=== PATIENT | female | born 1940 | race Caucasian/White ===

== ENCOUNTER 2016-12-14 10:03 | Inpatient (IN) ==
--- NOTE | 2016-12-14 10:18 | Emergency Department Note ---
Disposition Clinical Impression: Atrial fibrillation with slow ventricular response, Hyperprothrombinemia Anemia Qualifiers: Anemia type: unspecified type Qualified Code(s): D64.9 - Anemia, unspecified Disposition: Admitted As Inpatient Referrals: Jose Bonilla DO [Primary Care Provider] - Forms: ED Satisfaction Letter Time of Disposition: 13:06 General Adult HPI - General Chief complaint: ED Shortness of Breath/Dyspnea Stated complaint: swelling from waist down, shortness of breath Time Seen by Provider: 12/14/16 10:15 Source: patient Mode of arrival: ambulatory Limitations: no limitations Nursing Notes Reviewed: Yes Vital Signs Reviewed: Yes - History of Present Illness HPI Narrative: 76-year-old female states she woke up this morning with swelling in both of her legs up to her waist. She is noticed some red spots on her arms and legs since yesterday. She is on Coumadin. She does not remember when her INR was last checked. She has a history of atrial fibrillation. She denies chest pain. She denies shortness of breath. She is a smoker with COPD. She has a history of congestive heart failure. She does admit to some left calf pain. No chest pain. Onset (ago): day(s) (1) Location: lower extremity Pain Severity: moderate Quality: sharp (Left leg) Consistency: constant Improves with: nothing Worsens with: nothing Associated symptoms: Reports: denies other symptoms Treatments Prior to Arrival: none - Related Data Home Medications Medication Instructions Recorded Confirmed Albuterol Sulfate [Albuterol 1 puff IH Q4HR 02/20/15 07/28/15 Inhaler] Aspirin Enteric Coated [Aspirin EC] 81 mg PO DAILY 02/20/15 07/28/15 Digoxin [Lanoxin] 0.125 mg PO DAILY 02/20/15 07/28/15 Fluticasone Propionate [Flovent 110 gm IH BID 02/20/15 07/28/15 Hfa] Lisinopril/Hydrochlorothiazide 1 tab PO QAM 02/20/15 07/28/15 [Lisinopril-Hctz 20-12.5 mg Tab] Metoprolol [Lopressor] 25 mg PO BID 02/20/15 07/28/15 Diclofenac Sodium [Voltaren] 100 gm TP DAILY 12/14/16 12/14/16 Ergocalciferol (VITAMIN D2) 50,000 unit PO 12/14/16 [Vitamin D2] Ferrous Sulfate [Iron] 325 mg PO BID 12/14/16 12/14/16 HYDROcodone/Acet 5/325 mg [[place] 1 tab PO Q6H PRN 12/14/16 12/14/16 5-325 mg] Ipratropium/Albuterol Neb [Duoneb] 3 ml IH Q6HR 12/14/16 12/14/16 Loratadine [Allergy Relief] 10 mg PO DAILY 12/14/16 12/14/16 Potassium Chloride [Klor-Con 10] 10 meq PO DAILY 12/14/16 12/14/16 Warfarin [Coumadin] 5 mg PO 1800 12/14/16 12/14/16 amLODIPine [Norvasc] 5 mg PO DAILY 12/14/16 12/14/16 Previous Rx's Medication Instructions Recorded Fluticasone/Salmeterol [Advair 1 each IH BID #1 blst.w.dev 06/13/15 250-50 Diskus] Allergies Allergy/AdvReac Type Severity Reaction Status Date / Time Sulfa (Sulfonamide Allergy Severe Hives Verified 07/30/15 13:01 Antibiotics) ciprofloxacin [From Cipro] Allergy Rash Verified 12/14/16 10:04 All systems ED: reviewed and negative except as stated. Constitutional: Denies: fever, chills ENT ED: Denies: ear pain, throat pain Cardiovascular: Denies: chest pain Respiratory: Denies: cough, dyspnea Gastrointestinal: Denies: abdominal pain, nausea, vomiting, diarrhea Genitourinary: Denies: urgency, dysuria Musculoskeletal: Reports: other (Bilateral lower extremity swelling. Left calf pain.). Denies: back pain Integumentary: Reports: other ("Spots" on her arms and legs.) Neurological: Reports: weakness. Denies: numbness, paresthesias Past Medical History - Past Medical History Medical history: Reports: arthritis, atrial fibrillation, CHF, COPD, hyperlipidemia, hypertension, osteoporosis Surgical history: Reports: no surgical history, other Psychiatric history: Reports: no psych history LEAD SOFTWARE ARCHITECT history: Reports: no LEAD SOFTWARE ARCHITECT history - Social History Smoking Status: Former smoker Smokeless Tobacco Status: No Alcohol use: Reports: none Drug use: Reports: none Physical Exam - General Limitations: no limitations General appearance: alert, in no apparent distress - Head Head exam: atraumatic, normocephalic - Eye Eye exam: Present: PERRL, EOMI, other (Conjunctiva are pale). Absent: scleral icterus, conjunctival injection - ENT ENT exam: mucous membranes moist, other (Mucous membranes are pale) - Neck Neck exam: Present: normal inspection, full ROM, trachea midline. Absent: tenderness, lymphadenopathy - Respiratory Respiratory exam: Present: wheezes (Rare bilateral expiratory). Absent: respiratory distress, accessory muscle use - Cardiovascular Cardiovascular exam: Present: bradycardia, irregular rhythm. Absent: systolic murmur, diastolic murmur, gallop - Abdominal Exam Abdominal exam: Present: soft, Non-Tender - Extremities Exam Extremities exam: Present: other (2+ pitting edema starting below the knees. Diffuse left calf tenderness. No palpable cord. Mild edema of the thighs. I cannot palpate pulses in the lower extremities. The lower extremities are warm to touch. Intact capillary refill.) - Neurological Exam Neurological exam: Present: alert, oriented X3. Absent: motor sensory deficit - Psychiatric Psychiatric exam: Present: normal affect, normal mood - Skin Skin exam: Present: warm, dry, pallor, other (Scattered small purpuric areas on her arms and legs.) Course - Reevaluation(s) Reevaluation #1: Discussed treatment plan with patient. She is agreeable with being admitted. I spoke with Dr. Carrasco. He has accepted the patient for admission here. Time: 13:02 Vital Signs Temperature 97.6 F 12/14/16 10:06 Pulse Rate 39 12/14/16 10:06 Respiratory Rate 20 12/14/16 10:06 Blood Pressure 111/46 12/14/16 10:06 O2 Sat by Pulse Oximetry 98 12/14/16 10:06 Temperature 97.6 F 12/14/16 11:33 Pulse Rate 40 12/14/16 12:45 Respiratory Rate 18 12/14/16 12:45 Blood Pressure 154/43 12/14/16 12:45 O2 Sat by Pulse Oximetry 99 12/14/16 12:45 Oxygen Delivery Oxygen Delivery Nasal Cannula Procedures - Central Line Placement Right Femoral Central Line Inserted*: Yes Central Line Insertion: emergent Consent Obtained: verbal consent, written consent Procedural Pause: verify patient name and date of , timeout performed per policy, assemble equipment and verify supplies, perform hand hygiene Patient Placed on Monitor/Pulse Ox: Yes During the Procedure: clinician is wearing sterile gloves, cap, mask,& gown during insertion, sterile field and sterile technique are maintained Central Line Prep: Chlorhexidine scrub Prep the Procedure Site: apply chloraprep to the skin using a back and forth scrubbing motion, apply chloraprep for 30 seconds (upper body), 1-2 min ( femoral sites), allow prep to dry, drape the patient with a full body drape Local Anesthetic: lidocaine 1% Amount of anesthesia used (mL): 5 Ultrasound Used for Placement: No Central Line Lumen Inserted: triple Post Procedure: sutured in place, good blood return, all ports aspirated, flushed, capped, sterile dressing applied, guide wire removed and visualized Patient Tolerated Procedure: well, no complications Complications: none Name of Clinician Inserting Central Line: Dwight Cochran MD Date: 12/14/16 Medical Decision Making - [facility] Narrative Medical decision making narrative: Differential includes but is not limited to congestive heart failure, dependent edema, DVT, severe anemia, atrial fibrillation with slow ventricular rate. The patient is anemic. Her stool is Hemoccult negative. There is no source of active bleeding. Her INR significantly elevated. 2 units of packed red blood cells of been ordered. Since there is no active bleeding I have not reversed her INR. She has poor IV access will require a central line. I will use a right femoral site which is compressible because of her significantly elevated INR. She has a slow A. fib in the 30s. She is on metoprolol and digoxin which will be held. Her blood pressure has remained stable. Dr. Carrasco is agreeable with this treatment plan of transfusion 2 units, holding digoxin and metoprolol. He is agreeable with holding her Coumadin, no vitamin K or fresh frozen plasma at this time. - Lab Data Lab results reviewed: Yes I reviewed the patient's lab results. Result diagrams: 12/14/16 10:47 12/14/16 10:47 Lab Results 12/14/16 12/14/16 12/14/16 Range/Units 10:47 10:47 10:47 WBC 8.3 (4.3-11.1) K/mcL RBC 1.97 L (3.82-4.97) M/mcL Hgb 5.7 L* (11.5-15.4) g/dL Hct 20.6 L (35.3-44.9) % MCV 104.6 H (83.0-100.0) fL MCH 28.9 (28.0-33.3) pg MCHC 27.7 L (31.6-35.5) g/dL RDW 19.2 H (11.5-14.5) % Plt Count 218 (140-400) K/mcL MPV 11.5 (9.4-12.4) fL Immature Gran % 0.4 (0-4) % Seg Neutrophils % 82.6 % Lymphocytes % 7.9 % Monocytes % 7.4 % Eosinophils % 1.1 % Basophils % 0.6 % Neutrophils # 6.8 (1.6-8.9) K/mcL Lymphocytes # 0.7 (0.6-4.6) K/mcL Monocytes # 0.6 (0.0-1.3) K/mcL Eosinophils # 0.1 (0.0-0.6) K/mcL Basophils # 0.1 (0.0-0.2) K/mcL Nucleated RBCs/100 WBC 0.6 H (0) /100 WBC Hypochromasia Present A (Not Present) Anisocytosis 2+ A (Not Present) PT 107.4 H* (9.4-12.1) Seconds INR 9.3 H* Sodium 137 (136-145) mEq/L Potassium 5.2 H (3.5-4.5) mEq/L Chloride 108 (98-109) mEq/L Carbon Dioxide 15 L (19-29) mEq/L BUN 35 H (7-20) mg/dL Creatinine 1.33 H (0.57-1.11) mg/dL Est GFR ( Amer) 47 L (> 60) Est GFR (Non-Af Amer) 39 L (> 60) BUN/Creatinine Ratio 26 (6-26) Glucose 125 H (70-99) mg/dL Calculated Osmolality 293 (280-300) Calcium 8.8 (8.6-10.8) mg/dL Total Bilirubin 0.5 (0.2-1.2) mg/dL AST 15 (5-34) Units/L ALT 14 (0-55) Units/L Alkaline Phosphatase 70 (38-126) Units/L Troponin I (0-0.03) ng/mL B-Natriuretic Peptide (0-100) pg/mL Serum Total Protein 5.7 L (6.0-8.3) g/dL Albumin 2.7 L (3.5-5.0) g/dL Globulin 3.0 (2.4-3.5) g/dL Albumin/Globulin Ratio 0.9 L (1.1-2.2) Stool Occult Blood (Negative) Digoxin 1.2 (0.8-2.0) ng/mL Blood Type Antibody Screen Crossmatch 12/14/16 12/14/16 12/14/16 Range/Units 10:47 10:47 11:36 WBC (4.3-11.1) K/mcL RBC (3.82-4.97) M/mcL Hgb (11.5-15.4) g/dL Hct (35.3-44.9) % MCV (83.0-100.0) fL MCH (28.0-33.3) pg MCHC (31.6-35.5) g/dL RDW (11.5-14.5) % Plt Count (140-400) K/mcL MPV (9.4-12.4) fL Immature Gran % (0-4) % Seg Neutrophils % % Lymphocytes % % Monocytes % % Eosinophils % % Basophils % % Neutrophils # (1.6-8.9) K/mcL Lymphocytes # (0.6-4.6) K/mcL Monocytes # (0.0-1.3) K/mcL Eosinophils # (0.0-0.6) K/mcL Basophils # (0.0-0.2) K/mcL Nucleated RBCs/100 WBC (0) /100 WBC Hypochromasia (Not Present) Anisocytosis (Not Present) PT (9.4-12.1) Seconds INR Sodium (136-145) mEq/L Potassium (3.5-4.5) mEq/L Chloride (98-109) mEq/L Carbon Dioxide (19-29) mEq/L BUN (7-20) mg/dL Creatinine (0.57-1.11) mg/dL Est GFR ( Amer) (> 60) Est GFR (Non-Af Amer) (> 60) BUN/Creatinine Ratio (6-26) Glucose (70-99) mg/dL Calculated Osmolality (280-300) Calcium (8.6-10.8) mg/dL Total Bilirubin (0.2-1.2) mg/dL AST (5-34) Units/L ALT (0-55) Units/L Alkaline Phosphatase (38-126) Units/L Troponin I 0.06 H* (0-0.03) ng/mL B-Natriuretic Peptide 1588 H (0-100) pg/mL Serum Total Protein (6.0-8.3) g/dL Albumin (3.5-5.0) g/dL Globulin (2.4-3.5) g/dL Albumin/Globulin Ratio (1.1-2.2) Stool Occult Blood (Negative) Digoxin (0.8-2.0) ng/mL Blood Type O POSITIVE Antibody Screen NEGATIVE Crossmatch See Detail 12/14/16 Range/Units 11:45 WBC (4.3-11.1) K/mcL RBC (3.82-4.97) M/mcL Hgb (11.5-15.4) g/dL Hct (35.3-44.9) % MCV (83.0-100.0) fL MCH (28.0-33.3) pg MCHC (31.6-35.5) g/dL RDW (11.5-14.5) % Plt Count (140-400) K/mcL MPV (9.4-12.4) fL Immature Gran % (0-4) % Seg Neutrophils % % Lymphocytes % % Monocytes % % Eosinophils % % Basophils % % Neutrophils # (1.6-8.9) K/mcL Lymphocytes # (0.6-4.6) K/mcL Monocytes # (0.0-1.3) K/mcL Eosinophils # (0.0-0.6) K/mcL Basophils # (0.0-0.2) K/mcL Nucleated RBCs/100 WBC (0) /100 WBC Hypochromasia (Not Present) Anisocytosis (Not Present) PT (9.4-12.1) Seconds INR Sodium (136-145) mEq/L Potassium (3.5-4.5) mEq/L Chloride (98-109) mEq/L Carbon Dioxide (19-29) mEq/L BUN (7-20) mg/dL Creatinine (0.57-1.11) mg/dL Est GFR ( Amer) (> 60) Est GFR (Non-Af Amer) (> 60) BUN/Creatinine Ratio (6-26) Glucose (70-99) mg/dL Calculated Osmolality (280-300) Calcium (8.6-10.8) mg/dL Total Bilirubin (0.2-1.2) mg/dL AST (5-34) Units/L ALT (0-55) Units/L Alkaline Phosphatase (38-126) Units/L Troponin I (0-0.03) ng/mL B-Natriuretic Peptide (0-100) pg/mL Serum Total Protein (6.0-8.3) g/dL Albumin (3.5-5.0) g/dL Globulin (2.4-3.5) g/dL Albumin/Globulin Ratio (1.1-2.2) Stool Occult Blood Negative (Negative) Digoxin (0.8-2.0) ng/mL Blood Type Antibody Screen Crossmatch - Radiology Data Radiology results reviewed: Yes I reviewed the patient's radiology results. ITS Impressions Chest X-Ray 12/14/16 10:14 IMPRESSION: Mild pulmonary vascular congestion and small to moderate left-sided pleural effusion probable underlying atelectasis or infiltrate. Follow-up to resolution is recommended. D/ / Brii Castillo MD / Brii Castillo MD Interpreting Provider: Brii Castillo MD - EKG Data EKG #1 EKG attestation: Yes I reviewed and interpreted this EKG. EKG results narrative: Atrial fibrillation with slow ventricular response, rate of 38. Age indeterminate inferior myocardial infarction. Lateral ischemic changes, slightly more pronounced than on 02/20/15. Her atrial fibrillation is chronic, her rate is significantly slower than her previous tracing with a rate of 70.
[2016-12-14 10:59] LABS: Basophils # 0.1 K/mcL (0.0-0.2); Basophils % 0.6 %; Eosinophils # 0.1 K/mcL (0.0-0.6); Eosinophils % 1.1 %; Hematocrit 20.6 % (35.3-44.9); Immature Granulocytes % 0.4 % (0-4); Lymphocytes # 0.7 K/mcL (0.6-4.6); Lymphocytes % 7.9 %; Mean Corpuscular HGB Conc 27.7 g/dL (31.6-35.5); Mean Corpuscular Hemoglobin 28.9 pg (28.0-33.3); Mean Corpuscular Volume 104.6 fL (83.0-100.0); Mean Platelet Volume 11.5 fL (9.4-12.4); Monocytes # 0.6 K/mcL (0.0-1.3); Monocytes % 7.4 %; Neutrophils # 6.8 K/mcL (1.6-8.9); Nucleated Red Blood Cells 0.6 /100 WBC (0); Platelet Count 218 K/mcL (140-400); Red Blood Count 1.97 M/mcL (3.82-4.97); Red Cell Distribution Width 19.2 % (11.5-14.5); Segmented Neutrophils % 82.6 %
[2016-12-14 11:06] LABS: Hemoglobin 5.7 g/dL (11.5-15.4)
[2016-12-14 11:12] LABS: Albumin 2.7 g/dL (3.5-5.0); Albumin/Globulin Ratio 0.9 (1.1-2.2); Bilirubin,Total 0.5 mg/dL (0.2-1.2); Calcium 8.8 mg/dL (8.6-10.8); Potassium 5.2 mEq/L (3.5-4.5); Total Protein 5.7 g/dL (6.0-8.3)
[2016-12-14 11:17] LABS: Prothrombin Time 107.4 Seconds (9.4-12.1)
[2016-12-14 11:18] LABS: Digoxin 1.2 ng/mL (0.8-2.0); INR 9.3
[2016-12-14 11:25] LABS: Anisocytosis 2+ (Not Present); Hypochromasia Present (Not Present)
[2016-12-14 13:10] LABS: Immature Reticulocyte % 32.6 % (11.0-38.0); Retculocyte # 0.32 M/mcL (0.05-0.10); Reticulocyte % 14.4 % (1.6-2.8)
[2016-12-14] MEDS ORDERED: 0.9 % Sodium Chloride 500 ML ONE (13:33)
[2016-12-14] MEDS ORDERED: Ondansetron ODT 4 MG TAB.RAPDIS SL PRN (15:39)
[2016-12-14] MEDS ORDERED: 0.9 % Sodium Chloride 1,000 ML IVC SCH (15:39)
[2016-12-14] MEDS ORDERED: Naloxone 0.4 MG/ML INJ IVP PRN (15:39)
[2016-12-14] MEDS ORDERED: *HR* HYDROcodone/Acet 5/325 mg TABLET PO PRN (15:39)
[2016-12-14] MEDS ORDERED: Ipratropium/Albuterol Neb 3 ML IH SCH (16:00)
--- NOTE | 2016-12-14 16:14 | Electrocardiograph Report ---
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
--- NOTE | 2016-12-14 17:23 | Internal Med History&Physical ---
Date of Encounter: 12/14/16 Time of Encounter: 16:30 Assessment and Plan (1) Anemia Current visit: Yes Status: Acute Anemia testing was ordered in emergency room. Stool was reportedly guaiac negative. She has been ordered 2 units packed red blood cells. Qualifiers: Anemia type: unspecified type Qualified Code(s): D64.9 - Anemia, unspecified (2) Elevated brain natriuretic peptide (BNP) level Current visit: Yes Status: Acute Echocardiogram done 02/20/2015 showed LVEF of 65-70%. Suspect diastolic dysfunction. Will gently diurese and adjust other medications and monitor BNP peptide. (3) Chronic atrial fibrillation Current visit: No Status: Chronic Will hold Lanoxin and metoprolol since she has SVR. Will hold Coumadin since INR is elevated. (4) Hypertension Current visit: No Status: Chronic We will hold Norvasc because of edema and lisinopril/HCTZ because of azotemia. Qualifiers: Hypertension type: essential hypertension Qualified Code(s): I10 - Essential (primary) hypertension (5) Neutrophilia Current visit: Yes Status: Acute Will order CT of chest to further evaluate for pneumonia etc. We will also order UA. Internal Medicine - H&P: HPI Chief complaint: Edema, anemia Admitted From: Home Plans for Post Hospital Care: Home History of present illness: Ms. Paris is a 76 year old female who came to the emergency room stating when she awakened this morning she had noticeable edema of her legs. She denies pain in her legs or chest. She denies dyspnea. She denies the edema being present yesterday. She was evaluated in emergency room and found to have significant anemia with hemoglobin 5.7. Her INR was elevated at 9.3 and she had azotemia present. She was admitted to [facility] for ongoing care needs. Her cardiovascular history is significant for hypertension. She does not check her blood pressure at home and does not recall readings when she goes to the physician's office. She has chronic atrial fibrillation. She claims a diagnosis of heart failure. An echocardiogram done 02/20/2015 showed LVEF of 65-70%. There was indeterminant diastolic function assessment due to atrial fibrillation. There was mild to moderate MR, mild TR, and mild pulmonary hypertension with estimated RVSP of 41 mmHg. Interventricular septum and posterior wall thickness measurements were normal at 0.8 and 1.0 cm each. She denies HI, DVT or pulmonary embolus. She claims she had a heart cath approximately 10-15 years ago which was unremarkable. Past Med Surg Social Fam HX - Past Medical History Medical history: arthritis, atrial fibrillation, CHF, COPD, hyperlipidemia, hypertension, osteoporosis Psychiatric history: no psych history - Past Surgical History Surgical History: other - Social History Smoking Status: Former smoker Smokeless Tobacco Status: No Alcohol use: none Drug use: none - Family History Mother Hx Family Cardiac Disorders: Yes Hx Family Endocrine Disorder: Yes Internal Medicine - H&P: Meds Albuterol Sulfate [Albuterol Inhaler] 1 puff IH Q4HR 02/20/15 [History] Aspirin Enteric Coated [Aspirin EC] 81 mg PO DAILY 02/20/15 [History] Digoxin [Lanoxin] 0.125 mg PO DAILY 02/20/15 [History] Fluticasone Propionate [Flovent Hfa] 110 gm IH BID 02/20/15 [History] Lisinopril/Hydrochlorothiazide [Lisinopril-Hctz 20-12.5 mg Tab] 1 tab PO QAM 06/25 [History] Metoprolol [Lopressor] 25 mg PO BID 02/20/15 [History] Fluticasone/Salmeterol [Advair 250-50 Diskus] 1 each IH BID #1 blst.w.dev [Rx] Diclofenac Sodium [Voltaren] 100 gm TP DAILY 12/14/16 [History] Ergocalciferol (VITAMIN D2) [Vitamin D2] 2,000 unit PO 12/14/16 [History] Ferrous Sulfate [Iron] 325 mg PO BID 12/14/16 [History] HYDROcodone/Acet 5/325 mg [[place] 5-325 mg] 1 tab PO Q6H PRN 12/14/16 [History] Ipratropium/Albuterol Neb [Duoneb] 3 ml IH Q6HR 12/14/16 [History] Loratadine [Allergy Relief] 10 mg PO DAILY 12/14/16 [History] Potassium Chloride [Klor-Con 10] 10 meq PO DAILY 12/14/16 [History] Warfarin [Coumadin] 5 mg PO 1800 12/14/16 [History] amLODIPine [Norvasc] 5 mg PO DAILY 12/14/16 [History] Allergies Sulfa (Sulfonamide Antibiotics) Allergy (Severe, Verified 07/30/15 13:01) Hives ciprofloxacin [From Cipro] Allergy (Verified 12/14/16 10:04) Rash All Systems PM: A 10-system review of systems was performed and is negative for pertinent findings except as documented above in the HPI. Review of systems: Gen.: She states her weight has been stable the past few months Cardiovascular: As per history of present illness Respiratory: She smoked from age [age] never up to 1 pack per day. She claims a diagnosis of COPD but has not had PFTs. She does not use home oxygen. She denies evaluation for sleep apnea GI: She denies disorders of her liver gallbladder or exocrine pancreas : She denies hematuria dysuria or kidney stones. Review of available records show evidence of impaired renal function since February 2015. Neurologic: She denies large distribution strokes or seizures Endocrine: She denies diabetes thyroid disease or hyperlipidemia Hematology/oncology: She denies blood disorders or internal malignancies. She has been told she was iron deficient and was placed on oral iron therapy over a year ago. Her most recent hemoglobin prior to ER visit today was 10.0 on 2014. Psychiatric: She denies anxiety depression or other mental health issues Musk skeletal: She has DJD and was told she had vitamin D deficiency. - Constitutional Vitals: Temp Pulse Resp BP Pulse Ox 97.7 F 40 18 160/65 100 12/14/16 16:45 12/14/16 16:45 12/14/16 16:45 12/14/16 16:45 12/14/16 16:45 Exam: Gen.: She is a well-developed well-nourished female who appears in no severe distress at present time HEENT: Head is atraumatic and normocephalic. Eyes: EOMI. There is no scleral icterus. Mouth: Mucosa is moist. Neck: Supple and nontender. There is no thyromegaly or adenopathy noted. Heart: Bradycardic. I cannot tell if it is irregular. No murmurs or gallops are heard. Lungs: No wheezes or crackles are heard. Abdomen: Soft and nontender. No masses or guarding noted. Extremities: There is no cyanosis. She has 2+ edema of the legs involving both anterior and posterior/dependent portions of her legs. She has presacral edema. There is no cyanosis or clubbing noted. She has minimal DJD changes of her hands. Neurologic: Mental status: She is talkative and a good historian. Cranial nerves: Smile is symmetric. Forehead wrinkles bilaterally. Tongue protrudes midline. EOMI. Motor: There is no pronator drift. Cerebellar: Finger to nose is intact bilaterally. Skin: Warm and dry Internal Med - H&P Results - Labs CBC & Chem 7: 12/14/16 10:47 12/14/16 10:47 - VTE Reasons for not Prescribing Prophylaxis: Not indicated-Anticoagulated or INR therapeutic
[2016-12-14] MEDS ORDERED: D5% in Water 1,000 ML IVC SCH (17:45)
[2016-12-14] MEDS: Furosemide 40 MG/4 ML VIAL IVP SCH ×2 (18:25→21:18)
[2016-12-14] MEDS: Isosorbide MONOnitrate (24 HR) 30 MG TAB.ER.24H PO SCH (18:33)
[2016-12-14 18:43] LABS: % Iron Saturation 34 % (15-50); Iron 120 mcg/dL (50-170); Transferrin 254 mg/dL (180-382)
[2016-12-14 18:54] LABS: Ferritin 194 ng/ml (5-204)
[2016-12-14 19:11] LABS: Folate 9.5 ng/mL (7.0-31.4)
[2016-12-15 03:49] LABS: Bilirubin,Urine Negative (Negative); Blood,Urine Small (Negative); Clarity,Urine Slightly Cloudy (Clear); Glucose,Urine (UA) Normal (Normal); Ketones,Urine Negative (Negative); Leukocyte Esterase,Urine Negative (Negative); Nitrite,Urine Negative (Negative); Protein,Urine Negative (Neg-Trace); Specific Gravity,Urine <= 1.005 (1.010-1.025); Urobilinogen,Urine Normal (Normal)
[2016-12-15 03:52] LABS: Color,Urine Straw (Yellow)
[2016-12-15 03:56] LABS: Bacteria,Urine Few per hpf (None-Few); Hyaline Casts,Urine Few per lpf (None-Few); WBC,Urine 0-3 per hpf (0-3)
[2016-12-15 03:58] LABS: Mucus,Urine Few (Few); RBC,Urine 0-3 per hpf (0-3); Squamous Epithelial Cell,Urine Moderate per lpf (None-Few)
[2016-12-15 06:17] LABS: Basophils % 0.3 %; Eosinophils # 0.1 K/mcL (0.0-0.6); Eosinophils % 1.6 %; Hematocrit 23.1 % (35.3-44.9); Hemoglobin 7.1 g/dL (11.5-15.4); Immature Granulocytes % 0.3 % (0-4); Lymphocytes # 0.6 K/mcL (0.6-4.6); Lymphocytes % 7.3 %; Mean Corpuscular HGB Conc 30.7 g/dL (31.6-35.5); Mean Corpuscular Hemoglobin 29.5 pg (28.0-33.3); Mean Corpuscular Volume 95.9 fL (83.0-100.0); Monocytes # 0.6 K/mcL (0.0-1.3); Monocytes % 7.2 %; Neutrophils # 7.3 K/mcL (1.6-8.9); Nucleated Red Blood Cells 0.2 /100 WBC (0); Platelet Count 158 K/mcL (140-400); Red Blood Count 2.41 M/mcL (3.82-4.97); Red Cell Distribution Width 18.7 % (11.5-14.5); Segmented Neutrophils % 83.3 %
[2016-12-15 06:31] LABS: Magnesium 1.9 mg/dL (1.6-2.6)
[2016-12-15 06:51] LABS: INR 7.3; Prothrombin Time 84.3 Seconds (9.4-12.1)
[2016-12-15 06:57] LABS: Thyroid Stimulating Hormone 3.696 mcIU/mL (0.350-4.840)
[2016-12-15] MEDS ORDERED: amLODIPine 5 MG TABLET PO SCH (09:00)
[2016-12-15] MEDS ORDERED: Loratadine 10 MG TABLET PO SCH (09:00)
[2016-12-15] MEDS: Furosemide 40 MG/4 ML VIAL IVP SCH ×2 (09:54→20:40)
--- NOTE | 2016-12-15 09:54 | Internal Med Progress Note ---
Date of Encounter: 12/15/16 Time of Encounter: 09:45 - Assessment and plan (1) Anemia Current Visit: Yes Status: Acute Assessment and plan: Hemoglobin improved to 7.1 after transfusion. There was resolution of macrocytosis. Anemia testing showed no evidence of iron or other factor deficiency. Qualifiers: Anemia type: unspecified type Qualified Code(s): D64.9 - Anemia, unspecified (2) Elevated brain natriuretic peptide (BNP) level Current Visit: Yes Status: Acute Assessment and plan: December 15. BN peptide has risen to 2223. Will order repeat echocardiogram. Continue IV Lasix. Will increase Imdur and lisinopril. (3) Chronic atrial fibrillation Current Visit: No Status: Chronic Assessment and plan: December 15. Continue to withhold Lovenox and metoprolol because of SVR. Continue to hold Coumadin since INR remains elevated. (4) Hypertension Current Visit: No Status: Chronic Assessment and plan: December 15. Continue lisinopril and IV Lasix Qualifiers: Hypertension type: essential hypertension Qualified Code(s): I10 - Essential (primary) hypertension (5) Neutrophilia Current Visit: Yes Status: Acute Assessment and plan: December 15. Minimal-change in WBC and differential pattern. She remains afebrile. CT scan and urinalysis does not show evidence of infection. Will not give antibiotics at this time. Recheck labs in a.m. (6) Azotemia Current Visit: Yes Status: Acute Assessment and plan: December 15. Will recheck labs in a.m. - Subjective Interval history: December 15. She has no new complaints except slight dyspnea.. - Constitutional Vitals: Temp Pulse Resp BP Pulse Ox 97.9 F 41 16 121/40 98 12/15/16 06:38 12/15/16 06:38 12/15/16 06:38 12/15/16 06:38 12/15/16 06:38 Exam: She is resting comfortably in bed and appears in no acute distress. Her affect is bright and cheerful. She is able to have conversation without dyspnea. Heart is bradycardic rate approximate 40/m. Lungs are clear. Extremities show 1+ edema present on the dorsum of feet and lower legs. I reviewed her medications, lab results, and CT reports. Internal Medicine: Result - Labs CBC & Chem 7: 12/15/16 05:50 12/14/16 10:47 Labs: Short CBC 12/15/16 Range/Units 05:50 WBC 8.7 (4.3-11.1) K/mcL Hgb 7.1 L (11.5-15.4) g/dL Hct 23.1 L (35.3-44.9) % Plt Count 158 (140-400) K/mcL Neutrophils # 7.3 (1.6-8.9) K/mcL Cardiac Enzymes 12/14/16 12/14/16 12/15/16 Range/Units 18:45 23:16 05:50 Troponin I 0.08 H* 0.08 H* 0.08 H* (0-0.03) ng/mL Urine 12/15/16 Range/Units 03:43 Urine Color Straw (Yellow) Urine Clarity Slightly Cloudy A (Clear) Urine pH 5.0 (5.0-8.0) pH Units Ur Specific [place] <= 1.005 L (1.010-1.025) Urine Protein Negative (Neg-Trace) mg/dL Urine Glucose (UA) Normal (Normal) mg/dL - ABG Interpretation ABG results: PT/INR, D-dimer PT 84.3 Seconds (9.4-12.1) H* 12/15/16 05:50 - Impressions Impressions Chest CT 12/14/16 17:46 IMPRESSION: 1. Findings within the chest are most consistent with mild to moderate CHF, with passive atelectasis within the bilateral lower lobes. 2. A 14 mm nodular opacity within the left lower lobe, most likely a focus of atelectasis or pneumonitis. However, a true pulmonary nodule is not excluded. Suggest appropriate clinical treatment, and suggest short-term chest CT follow-up in 6- 8 weeks to ensure resolution of this finding and exclude an underlying pulmonary nodule in this location. 3. No acute intra-abdominal or intrapelvic process. 4. Cholelithiasis. 5. A 3.6 cm left adrenal adenoma. 6. Colonic diverticulosis, without evidence of diverticulitis. 7. Mild diffuse anasarca. D/ /15/2016 07:34:40 [facility] Interpreting Provider: Clifford Ann MD Abdomen/Pelvis CT 12/14/16 17:50 IMPRESSION: 1. Findings within the chest are most consistent with mild to moderate CHF, with passive atelectasis within the bilateral lower lobes. 2. A 14 mm nodular opacity within the left lower lobe, most likely a focus of atelectasis or pneumonitis. However, a true pulmonary nodule is not excluded. Suggest appropriate clinical treatment, and suggest short-term chest CT follow-up in 6- 8 weeks to ensure resolution of this finding and exclude an underlying pulmonary nodule in this location. 3. No acute intra-abdominal or intrapelvic process. 4. Cholelithiasis. 5. A 3.6 cm left adrenal adenoma. 6. Colonic diverticulosis, without evidence of diverticulitis. 7. Mild diffuse anasarca. D/ 12/15/2016 07:34:40 Clifford Ann MD / [facility] Interpreting Provider: Clifford Ann MD - VTE Reasons for not Prescribing Prophylaxis: Not indicated-Anticoagulated or INR therapeutic Consult Discharge Plan - Plan Referrals: Jose Bonilla DO [Primary Care Provider] - 1 week
[2016-12-15] MEDS: Isosorbide MONOnitrate (24 HR) 30 MG TAB.ER.24H PO SCH (09:55)
[2016-12-15] MEDS ORDERED: Isosorbide MONOnitrate (24 HR) 30 MG TAB.ER.24H PO SCH (10:03)
[2016-12-16 05:35] LABS: Basophils % 0.3 %; Eosinophils # 0.2 K/mcL (0.0-0.6); Eosinophils % 2.2 %; Hematocrit 24.9 % (35.3-44.9); Hemoglobin 7.5 g/dL (11.5-15.4); Immature Granulocytes % 0.4 % (0-4); Lymphocytes # 0.8 K/mcL (0.6-4.6); Lymphocytes % 11.3 %; Mean Corpuscular HGB Conc 30.1 g/dL (31.6-35.5); Mean Corpuscular Hemoglobin 29.5 pg (28.0-33.3); Mean Platelet Volume 11.6 fL (9.4-12.4); Monocytes # 0.6 K/mcL (0.0-1.3); Monocytes % 8.1 %; Neutrophils # 5.6 K/mcL (1.6-8.9); Platelet Count 157 K/mcL (140-400); Red Blood Count 2.54 M/mcL (3.82-4.97); Red Cell Distribution Width 18.6 % (11.5-14.5); Segmented Neutrophils % 77.7 %
[2016-12-16 05:51] LABS: INR 3.9
[2016-12-16 05:53] LABS: Prothrombin Time 44.4 Seconds (9.4-12.1)
[2016-12-16 06:00] LABS: Alanine Aminotransferase 13 Units/L (0-55); Albumin 2.6 g/dL (3.5-5.0); Alkaline Phosphatase 69 Units/L (38-126); Aspartate Amino Transferase 19 Units/L (5-34); BUN/Creatinine Ratio 28 (6-26); Bilirubin,Total 1.1 mg/dL (0.2-1.2); Blood Urea Nitrogen 29 mg/dL (7-20); Calcium 8.7 mg/dL (8.6-10.8); Carbon Dioxide 23 mEq/L (19-29); Chloride 105 mEq/L (98-109); Globulin 2.5 g/dL (2.4-3.5); Glucose 90 mg/dL (70-99); Osmolality,Calculated 297 (280-300); Potassium 3.9 mEq/L (3.5-4.5); Sodium 141 mEq/L (136-145); Total Protein 5.1 g/dL (6.0-8.3); eGFR For African Americans > 60 (> 60); eGFR For Non-African Americans 52 (> 60)
[2016-12-16 06:55] VITALS: BP 159/69
[2016-12-16] MEDS ORDERED: Furosemide 40 MG/4 ML VIAL IVP SCH (09:00)
[2016-12-16] MEDS ORDERED: Isosorbide MONOnitrate (24 HR) 60 MG TAB.ER.24H PO SCH (09:00)
--- NOTE | 2016-12-16 10:54 | Discharge Summary ---
Date of Encounter: 12/16/16 Time of Encounter: 10:15 - Discharge Diagnosis (1) Anemia Priority: Primary Status: Acute Qualifiers: Anemia type: unspecified type Qualified Code(s): D64.9 - Anemia, unspecified (2) Elevated brain natriuretic peptide (BNP) level Priority: Secondary Status: Acute (3) Chronic atrial fibrillation Priority: Secondary Status: Chronic (4) Hypertension Priority: Secondary Status: Chronic Qualifiers: Hypertension type: essential hypertension Qualified Code(s): I10 - Essential (primary) hypertension (5) Neutrophilia Priority: Secondary Status: Acute (6) Azotemia Priority: Secondary Status: Acute - Discharge Medications Prescriptions: Bumetanide [Bumex] 1 mg PO DAILY #7 tablet Isosorbide MONOnitrate (24 HR) [Imdur] 60 mg PO DAILY #30 tab.er.24h Lisinopril [Zestril] 20 mg PO DAILY #30 tablet Potassium Chloride 10 meq PO DAILY #7 tab.er.prt Home Medications: Albuterol Sulfate [Albuterol Inhaler] 1 puff IH Q4HR 02/20/15 [History] Aspirin Enteric Coated [Aspirin EC] 81 mg PO DAILY 02/20/15 [History] Digoxin [Lanoxin] 0.125 mg PO DAILY 02/20/15 [History] Fluticasone Propionate [Flovent Hfa] 110 gm IH BID 02/20/15 [History] Lisinopril/Hydrochlorothiazide [Lisinopril-Hctz 20-12.5 mg Tab] 1 tab PO QAM 06/25 [History] Metoprolol [Lopressor] 25 mg PO BID 02/20/15 [History] Fluticasone/Salmeterol [Advair 250-50 Diskus] 1 each IH BID #1 blst.w.dev [Rx] Diclofenac Sodium [Voltaren] 100 gm TP DAILY 12/14/16 [History] Ergocalciferol (VITAMIN D2) [Vitamin D2] 2,000 unit PO 12/14/16 [History] HYDROcodone/Acet 5/325 mg [[place] 5-325 mg] 1 tab PO Q6H PRN 12/14/16 [History] Ipratropium/Albuterol Neb [Duoneb] 3 ml IH Q6HR 12/14/16 [History] Potassium Chloride [Klor-Con 10] 10 meq PO DAILY 12/14/16 [History] Bumetanide [Bumex] 1 mg PO DAILY #7 tablet 12/16/16 [Rx] Isosorbide MONOnitrate (24 HR) [Imdur] 60 mg PO DAILY #30 tab.er.24h 12/16/16 [ Rx] Lisinopril [Zestril] 20 mg PO DAILY #30 tablet 12/16/16 [Rx] Potassium Chloride 10 meq PO DAILY #7 tab.er.prt 12/16/16 [Rx] Warfarin [Coumadin] 2.5 mg PO 1800 #0 12/16/16 [Rx] Allergies/Adverse Reactions: Allergies Sulfa (Sulfonamide Antibiotics) Allergy (Severe, Verified 07/30/15 13:01) Hives ciprofloxacin [From Cipro] Allergy (Verified 12/14/16 10:04) Rash Date of admission: 12/15/16 14:13 Primary care physician: Jose Bonilla DO - Patient Status Disposition: Home, Self-Care Overall status at discharge: patient is progressing back to baseline - Discharge Instructions Follow Up With: Jose Bonilla DO [Primary Care Provider] - 1 week - Diet and Activity Activity: resume usual activities as tolerated Diet: advance to your usual diet Hospital course: Ms. Paris is a 76 year old female who came to the emergency room stating when she awakened this morning she had noticeable edema of her legs. She denies pain in her legs or chest. She denies dyspnea. She denies the edema being present yesterday. She was evaluated in emergency room and found to have significant anemia with hemoglobin 5.7. Her INR was elevated at 9.3 and she had azotemia present. She was admitted to [facility] floor for ongoing care needs. Initial orders were written by the emergency room physician. I saw her on December 14 and performed a history and physical. She was transfused 2 units of packed red blood cells. Hemoglobin mandie to 7.5 on the day of discharge. Anemia testing showed no factor deficiency with iron 120, transferrin saturation 34%, ferritin 194, B12 541, and folate 9.5. Stool was guaiac negative in emergency room testing. Serum haptoglobin and LDH are pending at the time of discharge. Consideration for referral to hematology/oncology can be made by her PCP. Lisinopril/HCTZ and Norvasc were discontinued. She was given IV Lasix and had good diuresis with decrease in edema. She will be given lisinopril 20 mg daily and Bumex 1 mg daily at discharge. She was also started on isosorbide 60 mg daily which will be continued at discharge. There was gradual improvement in the left shift on the CBC differential by discharge. She did not receive antibiotics during hospital stay. Her azotemia improved with BUN and creatinine being 29 and 1.04 respectively on the day of discharge with estimated GFR of 52. She will remain off lisinopril/ HCTZ but will be placed on lisinopril. Her Coumadin dose was held and INR returned at 3.9 on the day of discharge. She was instructed to restart Coumadin dose of 2.5 mg daily on 12/18/2016. An echocardiogram was done on December 15 which showed LVEF 60-65%. There was indeterminate diastolic function because of atrial fibrillation. Estimated RVSP was elevated at 78 mmHg. There was mild MR present. CT of the chest abdomen and pelvis was done. There was a 3.6 cm left adrenal adenoma. Colonic diverticulosis without evidence of diverticulitis was seen. There was no acute intra-abdominal or intrapelvic process seen otherwise. She had a 14 mm nodular opacity within the left lower lobe most likely focus of atelectasis or pneumonitis. Repeat chest CT follow-up in 6-8 weeks was recommended. Her PCP can follow up on this. On December 16 I felt she was stable for discharge home. She will follow with her PCP Dr. Bonilla within 1 week. Room air oximetry will be checked prior to discharge. - Time Spent with Patient Total time spent providing and/or coordinating discharge services: - Constitutional Vitals: Temp Pulse Resp BP Pulse Ox 98.6 F 50 16 159/69 94 12/16/16 06:49 12/16/16 06:55 12/16/16 06:49 12/16/16 06:55 12/16/16 06:49 - VTE Reasons for not Prescribing Prophylaxis: Not indicated-Anticoagulated or INR therapeutic
[2016-12-16 18:05] LABS: Lactate Dehydrogenase 277 Units/L (159-327)
== END 2016-12-16 13:31 | disposition home or self-care (01) | DRG 812 ==
LOC: EMEROOPIK 10:03 → INPPIK 10:03
PROVIDERS: ADMIT Internal Medicine; ATTEND Internal Medicine

== ENCOUNTER 2017-05-14 15:12 | Inpatient (IN) ==
[2017-05-14] MEDS ORDERED: Bumetanide 1 MG/4 ML VIAL IVP ONE (15:30)
[2017-05-14 15:52] LABS: Basophils % 0.1 %; Eosinophils # 0.1 K/mcL (0.0-0.6); Eosinophils % 0.9 %; Hematocrit 21.1 % (35.3-44.9); Immature Granulocytes % 0.4 % (0-4); Lymphocytes # 0.5 K/mcL (0.6-4.6); Lymphocytes % 6.3 %; Mean Corpuscular HGB Conc 26.5 g/dL (31.6-35.5); Mean Corpuscular Volume 60.1 fL (83.0-100.0); Monocytes # 0.8 K/mcL (0.0-1.3); Monocytes % 10.2 %; Neutrophils # 6.5 K/mcL (1.6-8.9); Nucleated Red Blood Cells 0.4 /100 WBC (0); Platelet Count 249 K/mcL (140-400); Red Blood Count 3.51 M/mcL (3.82-4.97); Red Cell Distribution Width 21.8 % (11.5-14.5); Segmented Neutrophils % 82.1 %
[2017-05-14 15:58] LABS: INR 4.2
[2017-05-14 16:00] LABS: Activated Partial Thrombo Time 48.9 Seconds (26.0-36.0)
--- NOTE | 2017-05-14 16:06 | Emergency Department Note ---
Disposition Clinical Impression: Anemia, Acute exacerbation of CHF (congestive heart failure), Chronic atrial fibrillation, Coumadin toxicity Disposition: Admitted As Inpatient Condition: Fair Referrals: Jose Bonilla DO [Primary Care Provider] - Forms: ED Satisfaction Letter Time of Disposition: 16:45 ([facility]) Extremity Problem HPI - General Chief complaint: ED Extremity Problem,Nontraumatic Stated complaint: swelled so bad Time Seen by Provider: 05/14/17 15:17 Source: patient Mode of arrival: ambulatory Limitations: no limitations Nursing Notes Reviewed: Yes Vital Signs Reviewed: Yes - History of Present Illness HPI Narrative: Increased swelling edema to the legs bilaterally over the past couple months patient states it started about first of years just progressively worsened since then patient they tells me now that she is having swelling edema but also received a phone call from her physician that she needed to get to the emergency room immediately that her hemoglobin was either 5 or 6 patient states that she has some shortness of breath with activity she denies diarrhea melena hematochezia patient has really ambulated much activity since herself. She denies the blurred vision double vision loss vision abdominal pain or discomfort rash released and she denies any vaginal bleeding blood in her urine coughing up blood vomiting blood or any blood in the stool or type presentation she denies any additional complaints completely Pt Subjective Complaint: extremity swelling Onset (ago): month(s) Consistency: constant Injury Location: lower extremity Pain Scale: 0 Improves with: nothing Worsens with: nothing Associated symptoms: Reports: shortness of breath, swelling. Denies: chest pain , abdominal pain, back pain, bowel/bladder symptoms, fever, myalgias, arthralgias, change in appearance, redness Context: other (On anticoagulants) - Related Data Home Medications Medication Instructions Recorded Confirmed Albuterol Sulfate [Albuterol 1 puff IH Q4HR 02/20/15 05/14/17 Inhaler] Aspirin Enteric Coated [Aspirin EC] 81 mg PO DAILY 02/20/15 05/14/17 Diclofenac Sodium [Voltaren] 100 gm TP DAILY 12/14/16 05/14/17 Ergocalciferol (VITAMIN D2) 2,000 unit PO QAM 12/14/16 05/14/17 [Vitamin D2] HYDROcodone/Acet 5/325 mg [[place] 1 tab PO Q6H PRN 12/14/16 05/14/17 5-325 mg] Potassium Chloride [Klor-Con 10] 10 meq PO DAILY 12/14/16 05/14/17 Loratadine [Claritin] 10 mg PO HS 01/17/17 05/14/17 Albuterol Sulfate [Ventolin Hfa] 18 gm IH Q4H PRN 05/14/17 05/14/17 Bumetanide [Bumex] 1 mg PO DAILY 05/14/17 05/14/17 Furosemide [Lasix] 80 mg PO DAILY 05/14/17 05/14/17 Isosorbide MONOnitrate [Isosorbide 60 mg PO DAILY 05/14/17 05/14/17 Mononitrate] PredniSONE [Deltasone] 20 mg PO DAILY 05/14/17 05/14/17 Warfarin [Coumadin] 5 mg PO 1800 05/14/17 05/14/17 cephALEXin [Keflex] 500 mg PO BID 05/14/17 05/14/17 Previous Rx's Medication Instructions Recorded Fluticasone/Salmeterol [Advair 1 each IH BID #1 blst.w.dev 06/13/15 250-50 Diskus] Allergies Allergy/AdvReac Type Severity Reaction Status Date / Time Sulfa (Sulfonamide Allergy Severe Hives Verified 07/30/15 13:01 Antibiotics) ciprofloxacin [From Cipro] Allergy Rash Verified 12/14/16 10:04 All systems ED: reviewed and negative except as stated. Review of Systems: As Per HPI Constitutional: Reports: weakness. Denies: fever, chills Eyes: Denies: eye pain ENT ED: Denies: ear pain, throat pain Cardiovascular: Reports: dyspnea on exertion, orthopnea, edema. Denies: chest pain, palpitations Respiratory: Reports: dyspnea. Denies: cough, wheezes Gastrointestinal: Denies: abdominal pain, nausea Genitourinary: Denies: urgency, dysuria Musculoskeletal: Denies: back pain, neck pain Integumentary: Denies: rash, abrasion Neurological: Reports: weakness. Denies: headache Psychiatric: Denies: anxiety Endocrine: Reports: fatigue Hematological/Lymphatic: Reports: easy bruising. Denies: easy bleeding Allergic/Immunologic: Denies: facial swelling Past Medical History - Past Medical History Attestation: Yes The following information was validated with the patient. 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 - Social History Smoking Status: Former smoker Smokeless Tobacco Status: No Alcohol use: Reports: none Drug use: Reports: none Physical Exam - General Limitations: no limitations General appearance: alert, in no apparent distress, obese - Head Head exam: atraumatic, normocephalic, normal inspection - Eye Eye exam: Present: normal appearance, PERRL, EOMI - ENT ENT exam: normal exam, normal oropharynx, mucous membranes moist - Neck Neck exam: Present: normal inspection, full ROM, trachea midline - Chest Chest inspection: Present: normal inspection, symmetric chest wall rise - Respiratory Respiratory exam: Present: normal lung sounds bilaterally - Cardiovascular Cardiovascular exam: Present: regular rate, normal rhythm, normal heart sounds - Abdominal Exam Abdominal exam: Present: soft, Non-Tender, normal bowel sounds. Absent: mass, pulsatile mass - Extremities Exam Extremities exam: Present: normal inspection, full ROM, normal capillary refill , pedal edema. Absent: tenderness, joint swelling, calf tenderness - Expanded Lower Extremity Exam 1 - Edema all the way up to the inguinal ligaments bilaterally with pitting reflux 3+ and makeshift Jailyn boots in place Lower leg exam: Absent: Homans' sign Neurovascular/Tendon exam: Present: normal capillary refill, normal fine/light touch Gait: not tested/not observed - Back Exam Back exam: Present: normal inspection, full ROM. Absent: muscle spasm - Neurological Exam Neurological exam: Present: alert, oriented X3, CN II-XII intact - Psychiatric Psychiatric exam: Present: normal affect, normal mood - Skin Skin exam: Present: warm, dry, intact, other (sallow in color and multiple scabs on face) Course Course Narrative: Patient seen and examined given Bumex in the emergency room typed and crossed for 2 units will transfer to the floor patient will be admitted for observation services of Dr. Carrasco resting comfortably maintaining saturations blood pressure not tachycardic diallo underlying atrial fib Vital Signs Temperature 97.6 F 05/14/17 15:12 Pulse Rate 81 05/14/17 15:12 Respiratory Rate 24 05/14/17 15:12 Blood Pressure 130/53 05/14/17 15:12 O2 Sat by Pulse Oximetry 85 05/14/17 15:12 Temperature 97.6 F 05/14/17 15:12 Pulse Rate 75 05/14/17 16:27 Respiratory Rate 20 05/14/17 16:27 Blood Pressure 129/58 05/14/17 16:27 O2 Sat by Pulse Oximetry 90 05/14/17 16:27 Oxygen Delivery Oxygen Delivery Room Air Extremity Problem, Nontraumati - MDM Narrative Medical decision making narrative: Congestive heart failure with the anemia she has decreased carrying capacity which can cause peripheral edema this appears to be probably chronic in etiology in addition no she has significant anemia which will require transfusion which may also help resolve some of the activity - Differential Diagnosis Likely: lower extremity edema - Medical Records Medical records reviewed: Yes I reviewed the patient's medical records. - Lab Data Result diagrams: 05/14/17 15:40 05/14/17 15:40 Lab Results 05/14/17 05/14/17 05/14/17 Range/Units 15:40 15:40 15:40 WBC 8.0 (4.3-11.1) K/mcL RBC 3.51 L (3.82-4.97) M/mcL Hgb 5.6 L* (11.5-15.4) g/dL Hct 21.1 L (35.3-44.9) % MCV 60.1 L (83.0-100.0) fL MCH 16.0 L (28.0-33.3) pg MCHC 26.5 L (31.6-35.5) g/dL RDW 21.8 H (11.5-14.5) % Plt Count 249 (140-400) K/mcL MPV 10.0 (9.4-12.4) fL Immature Gran % 0.4 (0-4) % Seg Neutrophils % 82.1 % Lymphocytes % 6.3 % Monocytes % 10.2 % Eosinophils % 0.9 % Basophils % 0.1 % Neutrophils # 6.5 (1.6-8.9) K/mcL Lymphocytes # 0.5 L (0.6-4.6) K/mcL Monocytes # 0.8 (0.0-1.3) K/mcL Eosinophils # 0.1 (0.0-0.6) K/mcL Basophils # 0.0 (0.0-0.2) K/mcL Nucleated RBCs/100 WBC 0.4 H (0) /100 WBC Hypochromasia Present A (Not Present) Anisocytosis 1+ A (Not Present) Microcytosis Present A (Not Present) PT 46.4 H* (9.4-12.1) Seconds INR 4.2 APTT 48.9 H (26.0-36.0) Seconds Sodium 138 (136-145) mEq/L Potassium 3.7 (3.5-4.5) mEq/L Chloride 100 (98-109) mEq/L Carbon Dioxide 24 (19-29) mEq/L BUN 34 H (7-20) mg/dL Creatinine 1.31 H (0.57-1.11) mg/dL Est GFR ( Amer) 48 L (> 60) Est GFR (Non-Af Amer) 39 L (> 60) BUN/Creatinine Ratio 26 (6-26) Glucose 154 H (70-99) mg/dL Calculated Osmolality 297 (280-300) Calcium 9.0 (8.6-10.8) mg/dL Total Bilirubin 0.6 (0.2-1.2) mg/dL AST 14 (5-34) Units/L ALT 15 (0-55) Units/L Alkaline Phosphatase 115 (38-126) Units/L Troponin I (0-0.03) ng/mL B-Natriuretic Peptide (0-100) pg/mL Serum Total Protein 6.6 (6.0-8.3) g/dL Albumin 3.0 L (3.5-5.0) g/dL Globulin 3.6 H (2.4-3.5) g/dL Albumin/Globulin Ratio 0.8 L (1.1-2.2) TSH 6.723 H (0.350-4.840) mcIU/mL 05/14/17 05/14/17 Range/Units 15:40 15:40 WBC (4.3-11.1) K/mcL RBC (3.82-4.97) M/mcL Hgb (11.5-15.4) g/dL Hct (35.3-44.9) % MCV (83.0-100.0) fL MCH (28.0-33.3) pg MCHC (31.6-35.5) g/dL RDW (11.5-14.5) % Plt Count (140-400) K/mcL MPV (9.4-12.4) fL Immature Gran % (0-4) % Seg Neutrophils % % Lymphocytes % % Monocytes % % Eosinophils % % Basophils % % Neutrophils # (1.6-8.9) K/mcL Lymphocytes # (0.6-4.6) K/mcL Monocytes # (0.0-1.3) K/mcL Eosinophils # (0.0-0.6) K/mcL Basophils # (0.0-0.2) K/mcL Nucleated RBCs/100 WBC (0) /100 WBC Hypochromasia (Not Present) Anisocytosis (Not Present) Microcytosis (Not Present) PT (9.4-12.1) Seconds INR APTT (26.0-36.0) Seconds Sodium (136-145) mEq/L Potassium (3.5-4.5) mEq/L Chloride (98-109) mEq/L Carbon Dioxide (19-29) mEq/L BUN (7-20) mg/dL Creatinine (0.57-1.11) mg/dL Est GFR ( Amer) (> 60) Est GFR (Non-Af Amer) (> 60) BUN/Creatinine Ratio (6-26) Glucose (70-99) mg/dL Calculated Osmolality (280-300) Calcium (8.6-10.8) mg/dL Total Bilirubin (0.2-1.2) mg/dL AST (5-34) Units/L ALT (0-55) Units/L Alkaline Phosphatase (38-126) Units/L Troponin I 0.02 (0-0.03) ng/mL B-Natriuretic Peptide 2541 H (0-100) pg/mL Serum Total Protein (6.0-8.3) g/dL Albumin (3.5-5.0) g/dL Globulin (2.4-3.5) g/dL Albumin/Globulin Ratio (1.1-2.2) TSH (0.350-4.840) mcIU/mL - Radiology Data Radiology results reviewed: Yes I reviewed the patient's radiology results. ITS Impressions Chest X-Ray 05/14/17 15:30 IMPRESSION: Cardiomegaly with hydrostatic pulmonary edema and small layering bilateral pleural effusions in keeping with acute congestive heart failure. D/ / Jerel Paredes MD / Jerel Paredes MD Interpreting Provider: Jerel Paredes MD - EKG Data EKG attestation: Yes I reviewed and interpreted this EKG. EKG results narrative: Atrial fib with nonspecific T-wave rate 79 QRS 99 QT 352 axis LXIV Critical Care Time Critical Care Time: Yes Total Critical Care Time: 45 Attestation: ITS Impressions Chest X-Ray 05/14/17 15:30 IMPRESSION: Cardiomegaly with hydrostatic pulmonary edema and small layering bilateral pleural effusions in keeping with acute congestive heart failure. D/ / Jerel Paredes MD / Jerel Paredes MD Interpreting Provider: Jerel Paredes MD Critical care performed: 45 min due to the symptomatic anemia and the need for transfusion but also as result of congestive heart failure complicating matters with the patient risk for decompensation patient will be admitted transferred to [facility] for diuresis and transfusion Time is exclusive of separately billable procedures. Time includes: direct patient care, patient reassessment, coordination of patient care, interpretation of data (laboratory data, radiology data, and respiratory data), review of patient's medical records, medical consultation and documentation of patient care. Procedures included in critical care time: Procedures excluded from critical care time:
[2017-05-14 16:07] LABS: Hemoglobin 5.6 g/dL (11.5-15.4); Prothrombin Time 46.4 Seconds (9.4-12.1)
[2017-05-14 16:09] LABS: Albumin/Globulin Ratio 0.8 (1.1-2.2); Bilirubin,Total 0.6 mg/dL (0.2-1.2); Globulin 3.6 g/dL (2.4-3.5); Potassium 3.7 mEq/L (3.5-4.5); Total Protein 6.6 g/dL (6.0-8.3)
[2017-05-14 16:29] LABS: Thyroid Stimulating Hormone 6.723 mcIU/mL (0.350-4.840)
[2017-05-14 16:34] LABS: Anisocytosis 1+ (Not Present); Hypochromasia Present (Not Present); Microcytosis Present (Not Present)
[2017-05-14] MEDS ORDERED: 0.9 % Sodium Chloride 250 ML ONE ×2 (18:02→22:55)
[2017-05-14] MEDS ORDERED: Naloxone 0.4 MG/ML INJ IVP PRN (19:58)
[2017-05-14] MEDS ORDERED: Budesonide/Formoterol 80/4.5 MDI IH SCH (21:00)
[2017-05-14] MEDS ORDERED: Loratadine 10 MG TABLET PO SCH (21:00)
[2017-05-14 21:13] LABS: % Iron Saturation 3 % (15-50); Iron 14 mcg/dL (50-170); Transferrin 326 mg/dL (180-382)
[2017-05-14] MEDS: Bumetanide 1 MG/4 ML VIAL IVP SCH (22:09)
[2017-05-15] MEDS: Bumetanide 1 MG/4 ML VIAL IVP SCH ×2 (02:56→16:47)
[2017-05-15 05:26] LABS: Basophils % 0.3 %; Eosinophils # 0.2 K/mcL (0.0-0.6); Eosinophils % 2.1 %; Hematocrit 26.4 % (35.3-44.9); Hemoglobin 7.5 g/dL (11.5-15.4); Immature Granulocytes % 0.3 % (0-4); Lymphocytes # 0.5 K/mcL (0.6-4.6); Lymphocytes % 7.4 %; Mean Corpuscular HGB Conc 28.4 g/dL (31.6-35.5); Mean Corpuscular Hemoglobin 18.2 pg (28.0-33.3); Mean Corpuscular Volume 64.1 fL (83.0-100.0); Monocytes # 0.6 K/mcL (0.0-1.3); Monocytes % 7.8 %; Neutrophils # 5.8 K/mcL (1.6-8.9); Nucleated Red Blood Cells 0.3 /100 WBC (0); Platelet Count 188 K/mcL (140-400); Red Blood Count 4.12 M/mcL (3.82-4.97); Red Cell Distribution Width 25.2 % (11.5-14.5); Segmented Neutrophils % 82.1 %
[2017-05-15 05:37] LABS: INR 3.4; Prothrombin Time 37.8 Seconds (9.4-12.1)
[2017-05-15 05:40] LABS: Activated Partial Thrombo Time 45.6 Seconds (26.0-36.0)
[2017-05-15 05:48] LABS: BUN/Creatinine Ratio 28 (6-26); Blood Urea Nitrogen 29 mg/dL (7-20); Calcium 8.7 mg/dL (8.6-10.8); Carbon Dioxide 26 mEq/L (19-29); Chloride 103 mEq/L (98-109); Glucose 85 mg/dL (70-99); Osmolality,Calculated 297 (280-300); Potassium 3.3 mEq/L (3.5-4.5); Sodium 141 mEq/L (136-145); eGFR For African Americans > 60 (> 60); eGFR For Non-African Americans 52 (> 60)
[2017-05-15 06:58] LABS: Anisocytosis 3+ (Not Present); Poikilocytosis 1+ (Not Present)
[2017-05-15 06:59] LABS: Hypochromasia Present (Not Present); Polychromasia 1+ (Not Present)
[2017-05-15] MEDS ORDERED: Aspirin Enteric Coated 81 MG Tablet PO SCH (09:00)
[2017-05-15] MEDS ORDERED: Furosemide 40 MG TABLET PO SCH (09:00)
[2017-05-15] MEDS ORDERED: predniSONE 20 MG TABLET PO SCH (09:00)
[2017-05-15] MEDS: DICLOFENAC SODIUM TP SCH (09:10)
[2017-05-15] MEDS: Isosorbide MONOnitrate (24 HR) 60 MG TAB.ER.24H PO SCH (09:10)
[2017-05-15] MEDS: Cholecalciferol (D-3) 1,000 UNIT TABLET PO SCH (09:11)
[2017-05-15] MEDS: Budesonide/Formoterol 80/4.5 MDI IH SCH ×2 (11:06→22:35)
--- NOTE | 2017-05-15 14:04 | Internal Med History&Physical ---
Date of Encounter: 05/15/17 Time of Encounter: 08:30 Assessment and Plan (1) Acute exacerbation of CHF (congestive heart failure) Current visit: Yes Status: Chronic Suspect worsening due to multifactorial etiologies including severe anemia. She has been transfused 2 units packed red blood cells. IV diuretics will be given and further workup done as needed. Qualifiers: Congestive heart failure type: diastolic Qualified Code(s): I50.33 - Acute on chronic diastolic (congestive) heart failure (2) Chronic atrial fibrillation Current visit: Yes Status: Chronic Will restart Coumadin when pro time decreases to therapeutic range. (3) Hypertension Current visit: No Status: Chronic Continue Bumex and Imdur Qualifiers: Hypertension type: essential hypertension Qualified Code(s): I10 - Essential (primary) hypertension (4) Anemia Current visit: Yes Status: Chronic Anemia testing has been ordered. Qualifiers: Anemia type: unspecified type Qualified Code(s): D64.9 - Anemia, unspecified (5) Hypothyroidism Current visit: Yes Status: Acute TSH slightly elevated at 6.723. Will start Synthroid. Qualifiers: Hypothyroidism type: unspecified Qualified Code(s): E03.9 - Hypothyroidism , unspecified Internal Medicine - H&P: HPI Chief complaint: Anemia, dyspnea, edema Admitted From: Home Plans for Post Hospital Care: Home History of present illness: Ms. Paris is a 76 year old female who was directed to come to emergency room by personnel at her PCP office because her hemoglobin was very low. She had had progressive edema and dyspnea over the preceding days. She was started on Lasix by her PCP 2 days earlier. She was evaluated in emergency room and found to have hemoglobin of 5.6 with MCV of 60.1. She had azotemia with creatinine 1.31. She was ordered 2 units packed red blood cells and [facility] for ongoing care needs. She was hospitalized at [facility] December 2016 with anemia and edema. Anemia testing showed no factor deficiency at that time and stool was guaiac negative in emergency room. LDH and haptoglobin were ordered but apparently not performed. She takes Coumadin for atrial fibrillation and also uses aspirin and Voltaren. She reports she has been diagnosed with iron deficiency in the past. She does not have known malignancy history. Her cardiovascular history is significant for hypertension. She does not check her blood pressure at home and does not recall readings when she goes to the physician's office. She has chronic atrial fibrillation. She claims a diagnosis of heart failure. An echocardiogram done 02/20/2015 showed LVEF of 65-70%. There was indeterminant diastolic function assessment due to atrial fibrillation. There was mild to moderate MR, mild TR, and mild pulmonary hypertension with estimated RVSP of 41 mmHg. Interventricular septum and posterior wall thickness measurements were normal at 0.8 and 1.0 cm each. She denies FL, DVT or pulmonary embolus. She claims she had a heart cath approximately 10-15 years ago which was unremarkable. Past Med Surg Social Fam HX - Past Medical History Medical history: arthritis, atrial fibrillation, CHF, COPD, hyperlipidemia, hypertension, osteoporosis Psychiatric history: no psych history - Past Surgical History Surgical History: other - Social History Smoking Status: Former smoker Smokeless Tobacco Status: No Alcohol use: none Drug use: none - Family History Mother Hx Family Cardiac Disorders: Yes Hx Family Endocrine Disorder: Yes Internal Medicine - H&P: Meds Albuterol Sulfate [Albuterol Inhaler] 1 puff IH Q4HR 02/20/15 [History] Aspirin Enteric Coated [Aspirin EC] 81 mg PO DAILY 02/20/15 [History] Fluticasone/Salmeterol [Advair 250-50 Diskus] 1 each IH BID #1 blst.w.dev [Rx] Diclofenac Sodium [Voltaren] 100 gm TP DAILY 12/14/16 [History] Ergocalciferol (VITAMIN D2) [Vitamin D2] 2,000 unit PO QAM 12/14/16 [History] HYDROcodone/Acet 5/325 mg [[place] 5-325 mg] 1 tab PO Q6H PRN 12/14/16 [History] Potassium Chloride [Klor-Con 10] 10 meq PO DAILY 12/14/16 [History] Loratadine [Claritin] 10 mg PO HS 01/17/17 [History] Albuterol Sulfate [Ventolin Hfa] 18 gm IH Q4H PRN 05/14/17 [History] Bumetanide [Bumex] 1 mg PO DAILY 05/14/17 [History] Furosemide [Lasix] 80 mg PO DAILY 05/14/17 [History] Isosorbide MONOnitrate [Isosorbide Mononitrate] 60 mg PO DAILY 05/14/17 [History ] PredniSONE [Deltasone] 20 mg PO DAILY 05/14/17 [History] Warfarin [Coumadin] 5 mg PO 1800 05/14/17 [History] cephALEXin [Keflex] 500 mg PO BID 05/14/17 [History] 3 Allergy/AdvReac Type Severity Reaction Status Date / Time Sulfa (Sulfonamide Allergy Severe Hives Verified 07/30/15 13:01 Antibiotics) albuterol [From DuoNeb] Allergy Hives Verified 05/15/17 09:21 ciprofloxacin [From Cipro] Allergy Rash Verified 12/14/16 10:04 ipratropium [From DuoNeb] Allergy Hives Verified 05/15/17 09:21 All Systems PM: A 10-system review of systems was performed and is negative for pertinent findings except as documented above in the HPI. Review of systems: Review of systems from her December 2016 [facility] hospitalization were reviewed and revised as below. Gen.: Her weight has increased from 64.552 kg on 12/16/2016 to 70.76 kg on admission now Cardiovascular: As per history of present illness Respiratory: She smoked from age [age] never up to 1 pack per day. She claims a diagnosis of COPD but has not had PFTs. She does not use home oxygen. She denies evaluation for sleep apnea GI: She denies disorders of her liver gallbladder or exocrine pancreas : She denies hematuria dysuria or kidney stones. She has chronic kidney disease stage 2-3 Neurologic: She denies large distribution strokes or seizures Endocrine: She denies diabetes thyroid disease or hyperlipidemia Hematology/oncology: As per history of present illness Psychiatric: She denies anxiety depression or other mental health issues Musk skeletal: She has DJD and was told she had vitamin D deficiency. - Constitutional Vitals: Temp Pulse Resp BP Pulse Ox 97.6 F 70 16 123/53 98 05/15/17 10:59 05/15/17 10:59 05/15/17 11:06 05/15/17 10:59 05/15/17 11:06 Exam: Neuro: She is a well-developed well-nourished female who appears in no acute distress at present time. She denies pain or dyspnea at rest HEENT: Head is atraumatic and normocephalic. Eyes: EOMI. There is no scleral icterus. Mouth: Mucosa is moist. Neck: Supple and nontender. There is no thyromegaly or adenopathy noted. Heart: Irregularly irregular without murmurs or gallops Lungs: No wheezes or crackles are heard. Abdomen: Nontender to palpation. No masses or guarding noted. Extremities: She is wearing gauze on her lower legs and feet bilaterally which I did not unwrap. She has 1-2+ edema of the dorsum of the feet and lower anterior shins bilaterally. She has mild DJD changes of her hands. Neurologic: Mental status: He is talkative and a good historian. Cranial nerves : Smile is symmetric. Forehead wrinkles bilaterally. Tongue protrudes midline. EOMI. Motor: There is no pronator drift. Cerebellar: Finger to nose is intact bilaterally. Skin: Warm and dry Internal Med - H&P Results - Labs CBC & Chem 7: 05/15/17 04:36 05/15/17 04:36 Labs: Short CBC 05/15/17 Range/Units 04:36 WBC 7.1 (4.3-11.1) K/mcL Hgb 7.5 L D (11.5-15.4) g/dL Hct 26.4 L (35.3-44.9) % Plt Count 188 (140-400) K/mcL Neutrophils # 5.8 (1.6-8.9) K/mcL BMP 05/15/17 04:36 Sodium 141 Potassium 3.3 L Chloride 103 Carbon Dioxide 26 BUN 29 H Creatinine 1.03 Glucose 85 Calcium 8.7 Cardiac Enzymes 05/14/17 05/15/17 Range/Units 22:10 04:36 Troponin I 0.02 0.02 (0-0.03) ng/mL
[2017-05-15] MEDS: 0.45 % Sodium Chloride w/KCl 20 MEQ/1,000 ML MLS IVC SCH (16:43)
[2017-05-15] MEDS ORDERED: *HR* Warfarin 5 MG TABLET PO SCH (18:00)
[2017-05-16] MEDS: *HR* HYDROcodone/Acet 5/325 mg TABLET PO PRN ×2 (01:32→19:26)
[2017-05-16 05:50] LABS: Basophils % 0.1 %; Eosinophils % 0.6 %; Hematocrit 25.7 % (35.3-44.9); Hemoglobin 7.2 g/dL (11.5-15.4); Immature Granulocytes % 0.3 % (0-4); Lymphocytes # 0.6 K/mcL (0.6-4.6); Lymphocytes % 8.2 %; Mean Corpuscular Hemoglobin 18.3 pg (28.0-33.3); Mean Corpuscular Volume 65.2 fL (83.0-100.0); Monocytes # 0.7 K/mcL (0.0-1.3); Monocytes % 9.3 %; Neutrophils # 5.7 K/mcL (1.6-8.9); Nucleated Red Blood Cells 0.3 /100 WBC (0); Platelet Count 176 K/mcL (140-400); Red Blood Count 3.94 M/mcL (3.82-4.97); Segmented Neutrophils % 81.5 %
[2017-05-16 06:11] LABS: Anisocytosis 3+ (Not Present); Calcium 8.5 mg/dL (8.6-10.8); Magnesium 1.8 mg/dL (1.6-2.6); Potassium 4.3 mEq/L (3.5-4.5)
[2017-05-16 06:12] LABS: Hypochromasia Present (Not Present); Polychromasia 1+ (Not Present)
[2017-05-16 06:13] LABS: Microcytosis Present (Not Present); Poikilocytosis 1+ (Not Present)
[2017-05-16 06:16] LABS: Large Platelets Present (Not Present); Platelet Estimate Normal (Normal); Spherocytes 1+ (Not Present)
[2017-05-16] MEDS: Bumetanide 1 MG/4 ML VIAL IVP SCH ×4 (07:31→17:15)
[2017-05-16] MEDS: DICLOFENAC SODIUM TP SCH (09:04)
[2017-05-16] MEDS: Cholecalciferol (D-3) 1,000 UNIT TABLET PO SCH (09:04)
[2017-05-16] MEDS: Isosorbide MONOnitrate (24 HR) 60 MG TAB.ER.24H PO SCH (09:04)
--- NOTE | 2017-05-16 09:24 | Internal Med Progress Note ---
Date of Encounter: 05/16/17 Time of Encounter: 09:15 - Assessment and plan (1) Acute exacerbation of CHF (congestive heart failure) Current Visit: Yes Status: Chronic Assessment and plan: May 16. Continue IV Bumex. Will increase isosorbide and add lisinopril Qualifiers: Congestive heart failure type: diastolic Qualified Code(s): I50.33 - Acute on chronic diastolic (congestive) heart failure (2) Chronic atrial fibrillation Current Visit: Yes Status: Chronic Assessment and plan: . Will recheck pro time in a.m. to determine if Coumadin should be given (3) Hypertension Current Visit: No Status: Chronic Assessment and plan: May 16. Continue Bumex. Will start lisinopril and increase Imdur Qualifiers: Hypertension type: essential hypertension Qualified Code(s): I10 - Essential (primary) hypertension (4) Anemia Current Visit: Yes Status: Chronic Assessment and plan: May 16. Anemia testing consistent with iron deficiency. Will give IV iron dextran. Qualifiers: Anemia type: unspecified type Qualified Code(s): D64.9 - Anemia, unspecified (5) Hypothyroidism Current Visit: Yes Status: Acute Assessment and plan: May 16. TSH elevated at 6.723. We will give Synthroid Qualifiers: Hypothyroidism type: unspecified Qualified Code(s): E03.9 - Hypothyroidism , unspecified - Subjective Interval history: May 16. She has no new complaints except she feels cold. She denies pain or dyspnea. - Constitutional Vitals: Temp Pulse Resp BP Pulse Ox 97.8 F 66 18 152/73 2 05/16/17 06:58 05/16/17 06:58 05/16/17 06:58 05/16/17 06:58 05/16/17 07:56 Exam: She is resting comfortably in bed and appears in no acute distress. Her affect is bright and cheerful. Her leg edema is slightly improved. I reviewed her medications and lab results. Internal Medicine: Result - Labs CBC & Chem 7: 05/16/17 04:55 05/16/17 04:55 Labs: Short CBC 05/16/17 Range/Units 04:55 WBC 7.0 (4.3-11.1) K/mcL Hgb 7.2 L (11.5-15.4) g/dL Hct 25.7 L (35.3-44.9) % Plt Count 176 (140-400) K/mcL Neutrophils # 5.7 (1.6-8.9) K/mcL BMP 05/16/17 04:55 Sodium 140 Potassium 4.3 D Chloride 103 Carbon Dioxide 29 BUN 29 H Creatinine 1.19 H Glucose 92 Calcium 8.5 L - ABG Interpretation ABG results: PT/INR, D-dimer PT 37.8 Seconds (9.4-12.1) H 05/15/17 04:36 Consult Discharge Plan - Plan Referrals: Jose Bonilla, [Primary Care Provider] - 1 week
[2017-05-16] MEDS ORDERED: Isosorbide MONOnitrate (24 HR) 60 MG TAB.ER.24H PO ONE (09:45)
[2017-05-16] MEDS: Lisinopril 20 MG TABLET PO SCH (09:55)
[2017-05-16] MEDS ORDERED: IRON DEXTRAN COMPLEX IVPB ONE (10:30)
[2017-05-16] MEDS ORDERED: SODIUM CHLORIDE 0.9% IVPB ONE (10:30)
[2017-05-16] MEDS: Budesonide/Formoterol 80/4.5 MDI IH SCH ×2 (10:54→22:22)
[2017-05-16] MEDS: 0.45 % Sodium Chloride w/KCl 20 MEQ/1,000 ML MLS IVC SCH (11:46)
[2017-05-17 06:09] LABS: Basophils % 0.3 %; Eosinophils # 0.3 K/mcL (0.0-0.6); Eosinophils % 3.3 %; Hematocrit 25.8 % (35.3-44.9); Hemoglobin 7.2 g/dL (11.5-15.4); Immature Granulocytes % 0.5 % (0-4); Lymphocytes # 0.9 K/mcL (0.6-4.6); Lymphocytes % 12.5 %; Mean Corpuscular HGB Conc 27.9 g/dL (31.6-35.5); Mean Corpuscular Hemoglobin 18.5 pg (28.0-33.3); Mean Corpuscular Volume 66.3 fL (83.0-100.0); Mean Platelet Volume 10.5 fL (9.4-12.4); Monocytes # 0.6 K/mcL (0.0-1.3); Monocytes % 7.9 %; Neutrophils # 5.7 K/mcL (1.6-8.9); Nucleated Red Blood Cells 0.3 /100 WBC (0); Platelet Count 189 K/mcL (140-400); Red Blood Count 3.89 M/mcL (3.82-4.97); Red Cell Distribution Width 26.3 % (11.5-14.5); Segmented Neutrophils % 75.5 %
[2017-05-17 06:23] LABS: INR 1.8; Prothrombin Time 19.8 Seconds (9.4-12.1)
[2017-05-17 06:29] LABS: Calcium 8.4 mg/dL (8.6-10.8); Potassium 3.9 mEq/L (3.5-4.5)
[2017-05-17 06:41] LABS: Anisocytosis 3+ (Not Present); Hypochromasia Present (Not Present); Microcytosis Present (Not Present); Poikilocytosis 1+ (Not Present); Polychromasia 1+ (Not Present)
[2017-05-17 06:42] LABS: Platelet Estimate Normal (Normal)
[2017-05-17 06:44] LABS: Large Platelets Present (Not Present)
--- NOTE | 2017-05-17 06:45 | Electrocardiograph Report ---
[address] [address] Test Date: 2017-05-14 Pat Name: Ruby Paris Department: [id number] Room: [facility] Gender: F Security Developer: [id number] : 1940 Requested By: Rosalva Da Silva Order Number: [id number] Reading MD: Reggie Ramirez DO Measurements Intervals [place] Rate: 79 P: [place]: 0 QRS: 64 QRSD: 99 T: 164 QT: 352 QTc: 387 Interpretive Statements ATRIAL FIBRILLATION NONSPECIFIC ST & T-WAVE ABNORMALITY Electronically Signed On 05-17-2017 6:43:36 EST by Reggie Ramirez DO
[2017-05-17 06:48] LABS: Spherocytes 1+ (Not Present)
[2017-05-17] MEDS: Bumetanide 1 MG/4 ML VIAL IVP SCH (07:30)
[2017-05-17 08:58] VITALS: BP 126/52
[2017-05-17] MEDS: Lisinopril 20 MG TABLET PO SCH (08:59)
[2017-05-17] MEDS: Cholecalciferol (D-3) 1,000 UNIT TABLET PO SCH (09:00)
[2017-05-17] MEDS ORDERED: Isosorbide MONOnitrate (24 HR) 60 MG TAB.ER.24H PO SCH (09:00)
[2017-05-17] MEDS: Budesonide/Formoterol 80/4.5 MDI IH SCH (10:45)
--- NOTE | 2017-05-17 11:22 | Discharge Summary ---
Date of Encounter: 05/17/17 Time of Encounter: 11:05 - Discharge Diagnosis (1) Acute exacerbation of CHF (congestive heart failure) Priority: Primary Status: Chronic Qualifiers: Congestive heart failure type: diastolic Qualified Code(s): I50.33 - Acute on chronic diastolic (congestive) heart failure (2) Chronic atrial fibrillation Priority: Secondary Status: Chronic (3) Hypertension Priority: Secondary Status: Chronic Qualifiers: Hypertension type: essential hypertension Qualified Code(s): I10 - Essential (primary) hypertension (4) Anemia Priority: Secondary Status: Chronic Qualifiers: Anemia type: unspecified type Qualified Code(s): D64.9 - Anemia, unspecified (5) Hypothyroidism Priority: Secondary Status: Chronic Qualifiers: Hypothyroidism type: unspecified Qualified Code(s): E03.9 - Hypothyroidism , unspecified - Discharge Medications Prescriptions: Bumetanide [Bumex] 1 mg PO DAILY #30 tablet Isosorbide MONOnitrate [Isosorbide Mononitrate] 120 mg PO DAILY #60 tablet Levothyroxine [Synthroid] 75 mcg PO 0630 #30 tablet Lisinopril [Zestril] 20 mg PO DAILY #30 tablet Potassium Chloride [Klor-Con 10] 10 meq PO BID #60 tablet.er Home Medications: Albuterol Sulfate [Albuterol Inhaler] 1 puff IH Q4HR 02/20/15 [History] Fluticasone/Salmeterol [Advair 250-50 Diskus] 1 each IH BID #1 blst.w.dev [Rx] Diclofenac Sodium [Voltaren] 100 gm TP DAILY 12/14/16 [History] Ergocalciferol (VITAMIN D2) [Vitamin D2] 2,000 unit PO QAM 12/14/16 [History] HYDROcodone/Acet 5/325 mg [[place] 5-325 mg] 1 tab PO Q6H PRN 12/14/16 [History] Albuterol Sulfate [Ventolin Hfa] 18 gm IH Q4H PRN 05/14/17 [History] Aspirin Enteric Coated [Aspirin EC] 81 mg PO Q48H #0 05/17/17 [Rx] Bumetanide [Bumex] 1 mg PO DAILY #30 tablet 05/17/17 [Rx] Isosorbide MONOnitrate [Isosorbide Mononitrate] 120 mg PO DAILY #60 tablet 05/17 [Rx] Levothyroxine [Synthroid] 75 mcg PO 0630 #30 tablet 05/17/17 [Rx] Lisinopril [Zestril] 20 mg PO DAILY #30 tablet 05/17/17 [Rx] Potassium Chloride [Klor-Con 10] 10 meq PO BID #60 tablet.er 05/17/17 [Rx] Warfarin [Coumadin] 2.5 mg PO 1800 #0 05/17/17 [Rx] Allergies/Adverse Reactions: 3 Allergy/AdvReac Type Severity Reaction Status Date / Time Sulfa (Sulfonamide Allergy Severe Hives Verified 07/30/15 13:01 Antibiotics) albuterol [From DuoNeb] Allergy Hives Verified 05/15/17 09:21 ciprofloxacin [From Cipro] Allergy Rash Verified 12/14/16 10:04 ipratropium [From DuoNeb] Allergy Hives Verified 05/15/17 09:21 Date of admission: 05/15/17 14:24 Primary care physician: Jose Bonilla DO - Patient Status Disposition: Home, Self-Care Condition: Fair Functional capacity at discharge: independent ambulation Overall status at discharge: patient is progressing back to baseline - Discharge Instructions Follow Up With: Jose Bonilla DO [Primary Care Provider] - 1 week - Diet and Activity Activity: resume usual activities as tolerated Diet: advance to your usual diet Hospital course: Ms. Paris is a 76 year old female who was directed to come to emergency room by personnel at her PCP office because her hemoglobin was very low. She had had progressive edema and dyspnea over the preceding days. She was started on Lasix by her PCP 2 days earlier. She was evaluated in emergency room and found to have hemoglobin of 5.6 with MCV of 60.1. She had azotemia with creatinine 1.31. She was ordered 2 units packed red blood cells and admitted to [facility] floor for ongoing care needs. Initial orders were written by the emergency room physician. I saw her on May 15 and performed a history and physical. She was transfused 2 units packed red blood cells. Hemoglobin mandie to 7.5 on May 15 and remained stable for the remainder of hospitalization. Anemia testing showed iron 14, transferrin saturation 3%, transferrin 3 and 26, ferritin 19, B12 549, and folate 12.4. She was given iron dextran infusion. TSH was elevated at 6.723. She was started on Synthroid and will remain on this at discharge. BN peptide mandie to [id number] on May 16. She was started on lisinopril and given higher dose isosorbide. She was started on IV Bumex in emergency room and transition to oral Bumex by the day of discharge. She will remain on this regimen at discharge. Coumadin was held on admission because of elevated INR. The INR had decreased to 1.8 on the day of discharge and Coumadin will be restarted back at a lower dose of 2.5 mg daily. Aspirin dose will be decreased to 81 mg every other day to lessen risk of worsening anemia area and Creatinine was 1.15 on the day of discharge consistent with chronic kidney disease stage III. PCP can monitor renal indices as needed. On May 17 she wished to be discharged home which I felt was reasonable. Room air oximetry be checked on a 6 minute walk prior to discharge. She will follow with her PCP Dr. Bonilla within 1 week.. - Time Spent with Patient Total time spent providing and/or coordinating discharge services: - Constitutional Vitals: Temp Pulse Resp BP Pulse Ox 97.6 F 66 20 126/52 100 05/17/17 06:50 05/17/17 08:57 05/17/17 06:50 05/17/17 08:57 05/17/17 08:57
== END 2017-05-17 14:37 | disposition home health service (06) | DRG 291 ==
LOC: EMEROOPIK 15:12 → INPPIK 15:12
PROVIDERS: ADMIT Internal Medicine; ATTEND Internal Medicine